=== PATIENT | female | born 1960 | race Caucasian/White ===

== ENCOUNTER 2023-02-27 08:18 | Outpatient (CLI) | payer BC, SELFPAY ==
--- NOTE | ~2023-02-27 | XR_ITS ---
EXAM: XR skull <4V DATE: 02/27/2023 09:03 HISTORY: R22.0 - Localized swelling, mass and lump, head . COMPARISON: None available. FINDINGS: Normal mineralization. No fracture or dislocation. No lytic or blastic lesion. The aerated spaces are clear. Symmetric orbits. Mandibular dental implants. No abnormal intracranial calcificati on. Hyperostosis. No erosion or periosteal change. Soft tissues within normal limits. IMPRESSION: Unremarkable skull radiograph findings. Reviewed, dictated and finalized at location [facility]. [facility]
== END 2023-02-27 08:19 ==
LOC: MICIMG 08:21
PROVIDERS: PCP Family Medicine; Visit Provider Family Medicine
DX: R22.0 Localized swelling, mass and lump, head (principal)
CPT/HCPCS: 70250